=== PATIENT | female | born 1990 | race Caucasian/White ===

== ENCOUNTER 2016-12-08 18:32 | Outpatient (CLI) | payer BC ==
[~2016-12-08] VITALS: Ht 154.9 cm; Wt 57.7 kg
[~2016-12-08 18:32] MED LIST: MEDROXYPRO150 MG/1 M; SUBOXONE 8 MG-2 MG S
[2016-12-08 18:58] VITALS: BP 109/70
[2016-12-08] MEDS ORDERED: METHADONE10 MG PO (19:25)
== END 2016-12-08 19:35 | disposition home or self-care (01) ==
LOC: LDRP-OP 18:32 → 2WEST 18:35 → LDRP-OP 01-26 13:03
DX: O35.8XX0 Maternal care for other (suspected) fetal abnormality and damage, not applicable or unspecified (principal); Z3A.37 37 weeks gestation of pregnancy
CPT/HCPCS: 59025; G0378

== ENCOUNTER 2016-12-24 07:34 | Inpatient (IN) | payer BC ==
[~2016-12-24] VITALS: Ht 154.9 cm; Wt 58.5 kg
[~2016-12-24 07:34] MED LIST changes: +FLINTSTONES WI1 EACH PO; +METHADONE10 MG PO; +METHADONE10 MG/1 M1 PO
[2016-12-24 08:00] VITALS: BP 108/64
[2016-12-24 08:58] VITALS: BP 111/69
[2016-12-24] MEDS ORDERED: PERCOCET 5/31 TABLET PO (10:09)
[2016-12-24] MEDS ORDERED: MOTRIN800 MG PO (10:09)
[2016-12-24 18:00] VITALS: BP 121/68
[2016-12-24 20:30] VITALS: BP 96/52
[2016-12-24 22:40] VITALS: BP 98/53
[2016-12-25 00:40] VITALS: BP 99/59
[2016-12-25 04:00] VITALS: BP 113/64
[2016-12-25 07:30] VITALS: BP 114/61
[2016-12-25 07:53] LABS: EOSINOPHIL (%) 0 % (0-5); HEMATOCRIT 28.9 % (36.0-46.0); IMMATURE GRANULOCYTE (%) 0.3 % (0.0-0.7); INSTRUMENT ABS NEUTROPHIL CT 4.7 K/uL; LYMPHOCYTE COUNT 1.6 K/uL (1.0-2.8); MCH 26.8 PG (29.0-34.0); MCHC 31.1 G/DL (30.0-36.0); MEAN PLAT.VOLUME 9.8 uM^3 (9.5-12.4); MONOCYTE (%) 7.8 % (3-12); MONOCYTE COUNT 0.5 K/uL (0-0.8); NEUTROPHIL (%) 68.7 % (45-76); NEUTROPHIL COUNT 4.7 K/uL (1.8-6.4); PLATELET COUNT 129 K/uL (156-360); RBC DIS.WIDTH-CV 16.1 % (11.8-14.6); WHITE BLOOD COUNT 6.8 K/uL (4.1-10.2)
[2016-12-25 08:23] LABS: RED BLOOD COUNT 3.36 M/uL (3.80-5.20)
[2016-12-25 16:30] VITALS: BP 109/63
[2016-12-25 19:00] VITALS: BP 120/71
[2016-12-25 23:00] VITALS: BP 110/59
[2016-12-26 03:00] VITALS: BP 114/65
[2016-12-26 10:35] VITALS: BP 103/61
[2016-12-26 14:38] VITALS: BP 107/62
[2016-12-26 23:28] VITALS: BP 111/59
[2016-12-27 03:07] VITALS: BP 115/68
[2016-12-27 15:38] VITALS: BP 113/62
[2016-12-28 15:24] VITALS: BP 114/69
== END 2016-12-28 18:35 | disposition home or self-care (01) | DRG 765 ==
LOC: 2WEST 07:34 → 2SOUTH 08:44 → 2WEST 12-28 18:35
PROVIDERS: Obstetrics & Gynecology
PROC: 10D00Z1 Extraction of Products of Conception, Low, Open Approach (ICD-10-PCS; principal; 2016-12-24)
PROC: 05H433Z Insertion of Infusion Device into Left Innominate Vein, Percutaneous Approach (ICD-10-PCS; principal; 2016-12-24)
DX: O32.1XX0 Maternal care for breech presentation, not applicable or unspecified (principal); O99.324 Drug use complicating childbirth; F11.10 Opioid abuse, uncomplicated; O98.42 Viral hepatitis complicating childbirth; B19.20 Unspecified viral hepatitis C without hepatic coma; O99.02 Anemia complicating childbirth; D64.9 Anemia, unspecified; Z3A.39 39 weeks gestation of pregnancy; Z37.0 Single live birth
CPT/HCPCS: 36415; 71010; 80306 90; 85025; 86850; 86900; 86901; C1752; J0690; J1100; J1885; J2274; J2405; J2765; J3010; J7120